=== PATIENT | male | born 1955 | race Caucasian/White ===

== ENCOUNTER 2019-11-18 12:11 | Emergency (ER) | payer BC, SELFPAY ==
--- NOTE | ~2019-11-18 | US_ITS ---
EXAMINATION: US venous doppler LE RT DATE: 11/18/2019 13:06 INDICATION: Right lower limb swelling TECHNIQUE: Grayscale ultrasound images without and with compression and Doppler ultrasound images of the right lower extremity veins were obtained. COMPARISON: None. FINDINGS: The visualized portions of right common femoral vein, profunda (deep) femoral vein, femoral vein, pop liteal vein, peroneal trunk, posterior tibial veins, peroneal veins, gastrocnemius vein and greater s aphenous vein outflow are patent. IMPRESSION: 1. No deep venous thrombosis in the right lower limb. Reviewed, dictated and finalized at location A.
[2019-11-18 12:15] VITALS: BP 127/110; PULSE 92; RESP 20; TEMP 36.7; O2SAT 98
--- NOTE | 2019-11-18 12:56 | ED.EXTPRO ---
HPI - Extremity Problem General Chief complaint: Extremity Problem,Nontraumatic <Pankaj Medina PA-C - Last Filed: 11/18/19 13:53> Stated complaint: SWELLING R LEG <Pankaj Medina PA-C - Last Filed: 11/18/19 13:53> Time Seen by Provider: 11/18/19 12:12 <Pankaj Medina PA-C - Last Filed: 11/18/19 13:53> Source: patient <Pankaj Medina PA-C - Last Filed: 11/18/19 13:53> Mode of arrival: ambulatory <Pankaj Medina PA-C - Last Filed: 11/18/19 13:53> Limitations: no limitations <Pankaj Medina PA-C - Last Filed: 11/18/19 13:53> History of Present Illness HPI Narrative: Patient is a 64-year-old male who presents per EMS for evaluation of several days duration of right calf swelling denying any pain injury or trauma or similar occurrence in the past. Patient is unsure as to the etiology notes some fullness in the leg but has no other complaints. Patient does have history of tobacco abuse <Pankaj Medina PA-C - Last Filed: 11/18/19 13:53> Related Data Home medications: Home Medications Medication Instructions Recorded Confirmed amlodipine 10 mg PO DAILY 11/18/19 atorvastatin 20 mg PO DAILY 11/18/19 furosemide 20 mg PO DAILY 11/18/19 glipizide 10 mg PO BID 11/18/19 losartan 100 mg PO DAILY 11/18/19 <Pankaj Medina PA-C - Last Filed: 11/18/19 13:53> Allergies/Adverse reactions: Allergies Allergy/AdvReac Type Severity Reaction Status Date / Time No Known Allergies Allergy Unverified 11/27/15 14:35 <Pankaj Medina PA-C - Last Filed: 11/18/19 13:53> Review of Systems Review of Systems: All systems reviewed & are unremarkable except as noted in HPI and below <Pankaj Medina PA-C - Last Filed: 11/18/19 13:53> PMFSH Past Medical History Medical History: Medical History (Updated 11/18/19 @ 13:53 by Pankaj Medina PA-C) Anxiety <Pankaj Medina PA-C - Last Filed: 11/18/19 13:53> Social History Social History: Social History (Updated 11/18/19 @ 12:57 by Pankaj Medina PA-C) Smoking status: Current every day smoker <Pankaj Medina PA-C - Last Filed: 11/18/19 13:53> Exam Narrative: Exam Narrative: GENERAL: Well-appearing, well-nourished, and in no acute distress. HEAD: Normocephalic, atraumatic. EYES: PERRLA and EOMI. ENT: Nares clear, no rhinorrhea or epistaxis. Mucous membranes moist. CHEST: Clear to auscultation. No respiratory distress. No wheezes rales or rhonchi HEART: Regular rate and rhythm. No murmur heard. Normal peripheral pulses. ABDOMEN: Soft, nontender, nondistended EXTREMITIES: Normal range of motion. No edema. Swelling of the right calf in comparison to the left with no pain elicited on palpation SKIN: Warm, dry, no rash. NEURO: No focal deficits. Alert and oriented x3. Cranial nerves II through XII grossly intact PSYCH: Normal mood and affect. <Pankaj Medina PA-C - Last Filed: 11/18/19 13:53> Course Vital Signs Vital signs: Vital Signs Temperature 36.7 C 11/18/19 12:15 Pulse Rate 11/18/19 12:15 Respiratory Rate 11/18/19 12:15 Blood Pressure 127/110 H 11/18/19 12:15 Pulse Oximetry 98 11/18/19 12:15 Temperature 36.7 C 11/18/19 12:15 Pulse Rate 11/18/19 12:15 Respiratory Rate 11/18/19 12:15 Blood Pressure 127/110 H 11/18/19 12:15 Pulse Oximetry 98 11/18/19 12:15 <Pankaj Medina PA-C - Last Filed: 11/18/19 13:53> Vital Signs Temperature 36.7 C 11/18/19 12:15 Pulse Rate 92 11/18/19 12:15 Respiratory Rate 11/18/19 12:15 Blood Pressure 127/110 H 11/18/19 12:15 Pulse Oximetry 98 11/18/19 12:15 Temperature 36.7 C 11/18/19 12:15 Pulse Rate 92 11/18/19 12:15 Respiratory Rate 11/18/19 12:15 Blood Pressure 127/110 H 11/18/19 12:15 Pulse Oximetry 98 11/18/19 12:15 <Jaida Carias MD - Last Filed: 11/18/19 18:10> MDM - Extremity (Nontraumatic) MDM Narrative Med
[2019-11-18 13:24] LABS: Basophils Percent Auto 0.6 % (0.2-1.2); Eosinophils Absolute Auto 0.2 K/mm3 (0-0.3); Eosinophils Percent Auto 3.2 % (0-4.4); Hematocrit 38.2 % (42.0-52.0); Immature Granulocyte Absolute 0.01 K/mm3 (0.00-0.031); Immature Granulocyte Percent A 0.2 % (0-0.5); Lymphocytes Absolute Auto 2.12 K/mm3 (0.9-3.2); Lymphocytes Percent Auto 32.5 % (18.3-44.2); Mean Corpuscular Hemoglobin 29.1 pg (26-34); Mean Corpuscular Volume 85.7 fl (80-100); Mean Platelet Volume 11.5 fl (7.4-10.4); Monocytes Absolute Auto 0.9 K/mm3 (0.1-0.6); Monocytes Percent Auto 13.5 % (2.6-8.5); Neutrophils Absolute Auto 3.3 K/mm3 (1.3-6.7); Platelet Count Result 151 k/mm3 (150-375); Red Blood Count 4.46 M/mm3 (4.6-6.20); Red Cell Distribution Width 13.3 % (11.5-14.5); White Blood Count 6.5 K/mm3 (4.5-10.0)
[2019-11-18 13:33] LABS: Prothrombin Time 12.6 Seconds (11.1-14.7)
[2019-11-18 13:34] LABS: Partial Thromboplastin Time 26.9 SECONDS (22.3-36.8)
[2019-11-18 13:48] LABS: Alanine Aminotransferase 34 U/L (4-50); Albumin Level 4.4 g/dL (3.5-5.1); Alkaline Phosphatase 84 U/L (38-126); Aspartate Amino Transferase 35 U/L (17-59); Bilirubin,Total 0.5 mg/dL (0.2-1.3); Blood Urea Nitrogen 18 mg/dL (9-20); Calcium 8.9 mg/dL (8.4-10.2); Carbon Dioxide 28 mmol/L (22-30); Chloride 99 mmol/L (98-107); Estimated CRCL calculation 96 ml/min; Estimated Glomerular Filt Rate > 60; Glucose 212 mg/dL (75-110); Potassium 3.7 mmol/L (3.4-5.0); Sodium 134 mmol/L (137-145)
== END 2019-11-18 14:05 | disposition home or self-care (01) ==
PROVIDERS: Emergency Medicine Emergency Medical Services; Emergency Provider Emergency Medicine; PCP Internal Medicine
DX: M79.89 Other specified soft tissue disorders (principal); F17.200 Nicotine dependence, unspecified, uncomplicated
CPT/HCPCS: 36415; 80053; 85025; 85610; 85730; 93971; 99284

== ENCOUNTER 2021-03-09 14:30 | Outpatient (RCR) | payer BC, SELFPAY ==
[2021-02-10 14:26] VITALS: BMI 31.9
[2021-02-10 14:29] VITALS: BMI 31.9
== END 2021-05-02 11:34 | disposition home or self-care (01) ==
LOC: ANHDMC 14:30
PROVIDERS: PCP Internal Medicine; Visit Provider Family Medicine
DX: E11.65 Type 2 diabetes mellitus with hyperglycemia (principal); Z71.3 Dietary counseling and surveillance; Z71.89 Other specified counseling
CPT/HCPCS: 97802; 99199; G0108; G0109

== ENCOUNTER 2022-08-10 14:21 | Outpatient (CLI) | payer MEDICARE, SELFPAY ==
--- NOTE | ~2022-08-10 | CT_ITS ---
EXAMINATION:CT lung screening DATE: 08/10/2022 14:49 INDICATION: Cigarette nicotine dependence. Current smoker with 50 pack year history. TECHNIQUE: Computed tomography (CT) of the chest was performed without intravenous contrast. Automate d exposure control and iterative reconstruction technique were employed. The dose-length product (DLP ) was 197.74 mGy-cm. COMPARISON: None. FINDINGS: There is mild emphysema. There is peripheral septal thickening in the upper lungs. There is a 4 mm nodule in right lower lobe. No pleural effusion. The heart size is normal. There are coronary artery calcifications. No pericardial effusion. There is diffuse hepatic steatosis. There are gallst ones in the gallbladder, which is normal in size. There is mild thoracic spondylosis. IMPRESSION: 1. Lung-RADS category 2: Benign appearance or behavior. Continue annual screening with noncontrast lo w-dose chest CT in 12 months. Reviewed, dictated and finalized at location A. [employer] IMPRESSION: 1. Lung-RADS category 2: Benign appearance or behavior. Continue annual screeni ng with noncontrast low-dose chest CT in 12 months.
== END 2022-08-10 14:22 | disposition home or self-care (01) ==
PROVIDERS: PCP Registered Nurse; Visit Provider Registered Nurse
DX: Z12.2 Encounter for screening for malignant neoplasm of respiratory organs (principal); F17.210 Nicotine dependence, cigarettes, uncomplicated
CPT/HCPCS: 71271

== ENCOUNTER 2022-11-29 10:36 | Outpatient (CLI) | payer MEDICARE, MEDICAID, SELFPAY ==
--- NOTE | ~2022-11-29 | US_ITS ---
EXAMINATION: US aorta DATE: 11/29/2022 11:25 INDICATION: Nicotine dependence. TECHNIQUE: Grayscale, color Doppler, and pulsed Doppler images of the aorta and common iliac arteries were obtained. COMPARISON: None. FINDINGS: The proximal aorta measures 2.3 cm. The mid aorta measures 2.6 cm. The distal aorta measures 2.2 cm. The right and left common iliac arteries are obscured by shadowing bowel gas. IMPRESSION: 1. Normal caliber abdominal aorta. Reviewed, dictated and finalized at location B.
== END 2022-11-29 10:37 | disposition home or self-care (01) ==
PROVIDERS: PCP Registered Nurse; Visit Provider Registered Nurse
DX: F17.210 Nicotine dependence, cigarettes, uncomplicated (principal)
CPT/HCPCS: 76775

== ENCOUNTER 2023-06-20 04:29 | Emergency (ER) | payer MEDICARE, SELFPAY ==
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
--- NOTE | 2023-06-20 05:08 | PC.NURSE ---
call placed to [facility]or
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
--- NOTE | 2023-06-20 05:20 | PC.NURSE ---
Spoke with Guest Relations Associate Ayan Hull who is enroute to hospital for further evaluation.
--- NOTE | 2023-06-20 06:10 | PC.NURSE ---
belt maker helper arrived 0600.
== END 2023-06-20 07:29 | disposition expired ==
PROVIDERS: Emergency Provider Emergency Medicine; PCP Registered Nurse
DX: T20.212A Burn of second degree of left ear [any part, except ear drum], initial encounter (principal); T20.211A Burn of second degree of right ear [any part, except ear drum], initial encounter; T23.271A Burn of second degree of right wrist, initial encounter; T21.22XA Burn of second degree of abdominal wall, initial encounter; T21.25XA Burn of second degree of buttock, initial encounter; T20.27XA Burn of second degree of neck, initial encounter; I46.8 Cardiac arrest due to other underlying condition; X00.0XXA Exposure to flames in uncontrolled fire in building or structure, initial encounter
CPT/HCPCS: 92950; 99283; J0171